=== PATIENT | male | born 1975 | race Caucasian/White ===

== ENCOUNTER 2016-11-01 16:37 | Emergency (ER) | payer BC, OTHER ==
--- NOTE | 2016-11-01 16:44 | EDM.PDOC ---
ED HPI GI/ABDOMINAL - General Chief Complaint: Abdominal Pain Stated Complaint: ABDOMINAL PAIN Time Seen by Provider: 11/01/16 16:44 Source of Information: Reports: Patient History Limitations: Reports: No limitations - History of Present Illness INITIAL COMMENTS - FREE TEXT/NARRATIVE: 41-year-old male attends the ED with pain primarily in his right lower lateral ribs. He states he coughed really hard last night and seemed to make things much worse like something tore in size. Every movement or deep breath today causes pain in the right ribs and right back. Pain is felt primarily up underneath the costal margin on the right side. It does not radiate through to the other side. Has some pain occasionally in the lower right abdominal wall as well. All movements are usually 3 times a day and have been normal. no fever or chills although recently he was treated with a course of Amoxil for strep throat. He did have a cough with this as well. Not bringing up much sputum at this time . Not aware of any fever chills or night sweats. He reports she's been having right lateral chest wall pain for the better part of 2 weeks just worsened last night after coughing so hard. He can eat without any problems. Symptom Onset Date: 10/31/16 (Has been having right lateral anterior rib pain for the better part of 2 weeks. Much worse pain under the costal margin and into his back since he coughed hard last night.) Timing/Duration: Reports: Day(s): Location: other (Right upper quadrant right anterior lateral chest.) Quality: Reports: ache (Pain is much worse with movement or coughing or deep breathing.) Severity: moderate Worsens with: Reports: lying down, sitting up, other (Movements makes things much worse. Deep breathing also makes the pain worse.) Context: Denies: sick contact, bad/questionable food, out of country travel, recent surgery, recent trauma, lifting, activity/exercise Associated Symptoms: Reports: chest pain, back pain (See history present illness ). 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: Other (see below) (None today.) - Related Data Allergies/ADRs: Allergies Allergy/AdvReac Type Severity Reaction Status Date / Time No Known Allergies Allergy Verified 11/01/16 16:42 Home Meds: Home Meds oxyCODONE HCl/Acetaminophen [Percocet 5-325 mg Tablet] 1 - 2 each PO Q4H PRN # 12 tablet 11/01/16 [Rx] Past Medical History - Past Health History Medical/Surgical History: Denies Medical/Surgical History Social & Family History - Tobacco Use Smoking Status *Q: Never Smoker - Recreational Drug Use Recreational Drug Use: No - Living Situation & Occupation Occupation: employed ED [employer] GENER[employer] - Review of Systems Review Of Systems: See Below Constitutional: Denies: fever, chills, malaise, weakness, fatigue HEENT: Reports: No symptoms Respiratory: Reports: Cough, Other (Right anterior lateral chest with deep breathing. Especially along the costal margin.). Denies: Shortness of Breath, Sputum, Hemoptysis (Nonproductive) Cardiovascular: Reports: Chest pain. Denies: Blood pressure problem (See history present illness), Claudication, Dyspnea on exertion, Edema, Lightheadedness, Orthopnea, Palpitations, PND, Syncope, Other Endocrine: Reports: no symptoms GI/Abdominal: Reports: Abdominal pain (Right upper quadrant underneath the right costal margin and radiates around the costal margin into his back. I quite to the infrascapular area.). Denies: Constipation, Diarrhea, Decreased appetite, Difficulty swallowing, Distension, Flatus, Hematemesis, Hematochezia, Melena, Mucous in stool, Nausea, Stool incontinence, Vomiting : Reports: no symptoms Musculoskeletal: Reports: back pain (Right back flank pain radiate from the anterior right chest.) Skin: Reports: no symptoms Neurological: Reports: No Symptoms Psychiatric: Reports: No symptoms Hematologic/Lymphatic: Reports: no symptoms Immunologic: Reports: no symptoms ED EXAM, GI/ABD - Physical Exam Exam: See Below Exam Limited By: No limitations General Appearance: alert, WD/WN, moderate distress (He seems to be in a moderate amount of pain particularly with movement or deep breathing.) Eyes: bilateral: normal appearance (No jaundice.) Neck: normal inspection, supple, non-tender, full range of motion, carotid bruit Respiratory/Chest: no respiratory distress, lungs clear, normal breath sounds, no accessory muscle use, chest non-tender Cardiovascular: normal peripheral pulses, regular rate, rhythm, no edema, no murmur GI/Abdominal: normal bowel sounds, soft, no organomegaly, no abnormal bruit, no mass, tenderness (Tenderness to palpation along the right), Becerra's sign ( upper oblique muscles and under the costal margin. He does have a positive Becerra sign. However I'm not convinced it's gallbladder it seems to be more muscular.) (Male) Exam: No hernia Back Exam: normal inspection, full range of motion, other (No muscle spasm or rib and subluxation identified.). No: CVA tenderness (L), CVA tenderness (R) Extremities: normal inspection, normal range of motion, non-tender, no pedal edema, normal capillary refill Neurological: alert, oriented, CN II-XII intact, normal cognition, normal gait Psychiatric: normal affect, normal mood Skin Exam: Warm, Dry, Intact, Normal color, No rash, Other (No rashes to suggest shingles.) Course - Vital Signs Last Recorded V/S: Last Vital Signs Temp 36.6 C 11/01/16 16:42 Pulse 80 11/01/16 16:42 Resp 16 11/01/16 16:42 BP 133/93 H 11/01/16 16:42 Pulse Ox 97 11/01/16 16:42 - Orders/Labs/Meds Orders: Active Orders 24 hr Category Date Time Status Abdomen Pelvis w Cont [CT] Stat Exams 11/01/16 17:28 Ordered Ribs 2V w Chest Rt [CR] Stat Exams 11/01/16 17:00 Taken HEPATITIS C ANTIBODY [CHEM] Stat Lab 11/01/16 17:22 Received URINALYSIS W/MICROSCOPIC [UA W/MICROSCOPIC] [URIN] Stat Lab 11/01/16 17:28 Uncollected Dextrose 5%-0.9% NaCl [Dextrose 5%-Normal Saline] 1,000 Med 11/01/16 17:30 Active ml IV ASDIRECTED Ketorolac [Toradol] Med 11/01/16 17:30 Active 30 mg IVPUSH ONETIME Sodium Chloride 0.9% [Saline Flush] Med 11/01/16 18:56 Active 10 ml FLUSH ONETIME PRN Medication Orders Dextrose/Sodium Chloride (Dextrose 5%-Normal Saline) 1,000 mls @ 150 mls/hr IV ASDIRECTED SAGRARIO Last Admin: 11/01/16 18:03 Dose: 150 mls/hr Ketorolac Tromethamine (Toradol) 30 mg IVPUSH ONETIME SAGRARIO Last Admin: 11/01/16 18:06 Dose: 30 mg Sodium Chloride (Saline Flush) 10 ml FLUSH ONETIME PRN PRN Reason: IV FLUSH Labs: Laboratory Tests 11/01/16 11/01/16 11/01/16 Range/Units 17:44 17:44 17:44 WBC 6.80 (4.23-9.07) K/mm3 RBC 4.69 (4.63-6.08) M/mm3 Hgb 15.5 (13.7-17.5) gm/L Hct 44.9 (40.1-51.0) % MCV 95.7 H (79.0-92.2) fl MCH 33.0 H (25.7-32.2) pg MCHC 34.5 (32.2-35.5) g/dl RDW Std Deviation 42.8 (35.1-43.9) fL Plt Count 340 H (163-337) K/mm3 MPV 10.2 (9.4-12.3) fl Neutrophils % (Manual) 43 (40-60) % Band Neutrophils % 1 (0-10) % Lymphocytes % (Manual) 47 H (20-40) % Atypical Lymphs % 0 % Monocytes % (Manual) 7 (2-10) % Eosinophils % (Manual) 1 (0.8-7.0) % Basophils % (Manual) 1 (0.2-1.2) Platelet Estimate Adequate Plt Morphology Comment Normal RBC Morph Comment Normal ESR 5 (0-15) mm/hr D-Dimer, Quantitative (0.19-0.59) mg/L Sodium 142 (136-145) mEq/L Potassium 3.9 (3.5-5.1) mEq/L Chloride 107 (98-107) mEq/L Carbon Dioxide 25 (21-32) mEq/L Anion Gap 13.9 (5-15) BUN 19 H (7-18) mg/dL Creatinine 1.1 (0.7-1.3) mg/dL Est Cr Clr Drug Dosing TNP Estimated GFR (MDRD) > 60 (>60) mL/min BUN/Creatinine Ratio 17.3 (14-18) Glucose 100 (74-106) mg/dL Calcium 9.3 (8.5-10.1) mg/dL Total Bilirubin 0.5 (0.2-1.0) mg/dL AST 24 (15-37) U/L ALT 74 H (16-63) U/L Alkaline Phosphatase 67 (46-116) U/L C-Reactive Protein < 0.2 (<1.0) mg/dL Total Protein 6.9 (6.4-8.2) g/dl Albumin 4.1 (3.4-5.0) g/dl Globulin 2.8 gm/dL Albumin/Globulin Ratio 1.5 (1-2) Lipase 196 (73-393) U/L 11/01/16 Range/Units 17:44 WBC (4.23-9.07) K/mm3 RBC (4.63-6.08) M/mm3 Hgb (13.7-17.5) gm/L Hct (40.1-51.0) % MCV (79.0-92.2) fl MCH (25.7-32.2) pg MCHC (32.2-35.5) g/dl RDW Std Deviation (35.1-43.9) fL Plt Count (163-337) K/mm3 MPV (9.4-12.3) fl Neutrophils % (Manual) (40-60) % Band Neutrophils % (0-10) % Lymphocytes % (Manual) (20-40) % Atypical Lymphs % % Monocytes % (Manual) (2-10) % Eosinophils % (Manual) (0.8-7.0) % Basophils % (Manual) (0.2-1.2) Platelet Estimate Plt Morphology Comment RBC Morph Comment ESR (0-15) mm/hr D-Dimer, Quantitative 0.32 (0.19-0.59) mg/L Sodium (136-145) mEq/L Potassium (3.5-5.1) mEq/L Chloride (98-107) mEq/L Carbon Dioxide (21-32) mEq/L Anion Gap (5-15) BUN (7-18) mg/dL Creatinine (0.7-1.3) mg/dL Est Cr Clr Drug Dosing Estimated GFR (MDRD) (>60) mL/min BUN/Creatinine Ratio (14-18) Glucose (74-106) mg/dL Calcium (8.5-10.1) mg/dL Total Bilirubin (0.2-1.0) mg/dL AST (15-37) U/L ALT (16-63) U/L Alkaline Phosphatase (46-116) U/L C-Reactive Protein (<1.0) mg/dL Total Protein (6.4-8.2) g/dl Albumin (3.4-5.0) g/dl Globulin gm/dL Albumin/Globulin Ratio (1-2) Lipase (73-393) U/L Meds: Medications Generic Name Dose Route Start Last Admin Trade Name Freq PRN Reason Stop Dose Admin Dextrose/Sodium Chloride 1,000 mls @ 150 mls/hr 11/01/16 17:30 11/01/16 18:03 Dextrose 5%-Normal Saline IV 150 mls/hr ASDIRECTED SAGRARIO Administration Ketorolac Tromethamine 30 mg 11/01/16 17:30 11/01/16 18:06 Toradol IVPUSH 30 mg ONETIME SAGRARIO Administration Sodium Chloride 10 ml 11/01/16 18:56 Saline Flush FLUSH ONETIME PRN IV FLUSH Discontinued Medications Generic Name Dose Route Start Last Admin Trade Name Freq PRN Reason Stop Dose Admin Diatrizoate Meglum/Diatrizoate Sod 90 ml 11/01/16 18:56 Gastrografin 37% PO 11/01/16 18:57 ONETIME ONE Hydromorphone HCl 1 mg 11/01/16 17:27 11/01/16 17:58 Dilaudid IVPUSH 11/01/16 17:28 1 mg ONETIME ONE Administration Iopamidol 125 ml 11/01/16 18:56 Isovue-300 (61%) IVPUSH 11/01/16 18:57 ONETIME ONE Metoclopramide HCl 10 mg 11/01/16 17:27 11/01/16 17:55 Reglan IVPUSH 11/01/16 17:28 10 mg ONETIME ONE Administration - Radiology Interpretation Free Text/Narrative:: 41-year-old male attends the ED with diffuse pain in his right anterolateral lower chest worse with inspiration and movement such as standing sitting or getting out of bed onto the vehicle or lying down. No known injuries. He states she's had pain in this area pretty well constantly for the last 2 weeks but if he lies on the right side at bedtime. Denies any changes in bowel habits or genitourinary function. He did have an upper Specter tract infection treated with amoxicillin for suspect strep infection about 2 weeks ago. No fever or chills now. He coughed hard last night and he states this seemed to tear something or strained something inside as the pain increased traumatically. He can barely get out of bed this morning. Contamination shows tenderness along the lower right 3 ribs as well as the upper abdominal wall i.e. the obliques. Nothing identified in the back. Plan initially will have a two-view chest x-ray with right rib detail done. Pending these results we'll consider further investigations by way of lab and/or CT to make sure that his gallbladder and kidney are okay here. - Re-Assessments/Exams Free Text/Narrative Re-Assessment/Exam: 11/01/16 17:31 2 view chest x-ray with right rib detail does not reveal any abnormalities in the lung or the ribs visualized. There is increased stool in the colon up underneath the right hemidiaphragm. He requires further investigation and therefore lab work will be collected including a d-dimer and lipase. A CT of his abdomen pelvis be ordered with contrast. The meantime he will have IV started normal saline at 150 mils per hour. Given Dilaudid 1 mg IV with Reglan 10 mg IV and Toradol 30 mg IV for pain relief. 11/01/16 19:17 labs are now back. They reveal a normal white count at 6.80 with a normal differential of 43% neutrophils and 1% band cells. Hemoglobin is normal at 15.5 with hematocrit of 44.9. Will is normal 340,000. Sedimentation rate is 5. D-dimer is normal at 0.32. Chemistry shows a sodium of 142 potassium of 3.9. Total 7 bicarbonate 25. BUN is 19. ALT is elevated at 74. Serum lipase normal 196. C-reactive protein is less than 0.2. Because of his elevated ALT only and 74 a hepatitis C antibody test was ordered. Patient is soon to go to the CT suite. 11/01/16 19:33 CT of the abdomen and pelvis has been completed. Visualized portions of the lungs and ribs on the right side reveal no abnormalities. CT of the abdomen reveals a normal-appearing liver and visualized portions of the gallbladder did not show any signs of inflammation or stones. Pancreas is relatively small and otherwise within normal limits. Adrenal glands normal spleen normal stomach close most of the contrast media with very little contrast entering the upper small bowel. The kidneys are well visualized due to intravenous contrast and drainage systems are normal. He has bilateral small fat -containing inguinal hernias. He is a large amount of stool throughout the right hemicolon particularly the hepatic flexure wedged up underneath the liver overlying the kidney and stool through out the transverse colon which I think is consuming a good deal to his abdominal pain. However I still feel he has a significant musculoskeletal problem with the ribs and oblique muscles. Reports pain is coming back at this time and with some nausea and he'll be given Zofran 4 mg IV with Dilaudid 0.5 mg IV for further pain relief. 11/01/16 19:50 spoke with him at length about the findings. Plan will be to place him on Citroma 7 ounces by mouth with 5 ounces of juice of choice tonight to provide right hemicolon bowel cleanse. He is to followup if his pain persists and is not markedly improved in the next 5-7 days. Recommended Aleve 2 tablets every 8 hours as necessary for pain and inflammation relief and I did supply him with Percocet 5/325 mg tablets x12 that he can take for pain not relieved by Aleve alone. He is to monitor his skin in this area for the next week to make sure that he does not develop shingles. Departure - Departure Time of Disposition: 20:20 Disposition: Home, Self-Care 01 Condition: fair Clinical Impression: Acute chest wall pain, Abdominal wall pain in right upper quadrant Prescriptions: oxyCODONE HCl/Acetaminophen [Percocet 5-325 mg Tablet] 1 - 2 each PO Q4H PRN # 12 tablet PRN Reason: pain relief. Forms: ED Department Discharge Additional Instructions: Evaluation in the emergency room today in regards to reported right lower anterior lateral chest wall pain involving ribs 1011 and 12 for the better part of 2 weeks. Pain worsened substantially after a very hard cough last evening which kept her awake a good portion of the night and has been very troublesome throat today. Any movement or he did deep breathing aggravates the pain suggesting muscle splitting source of injury. Tenderness appreciated however along the right upper abdominal wall particularly under the ribs in the distribution of the gallbladder and liver. Tenderness appreciated on palpation of ribs 1011 and 12 particularly 11th and 12th rib anterior laterally where the muscles come off of the ribs. X-rays of the chest with views of the ribs did not reveal any abnormalities within the chest lung or ribs themselves. Lab work done was also found to be completely normal with a normal white blood cell count and no signs of an infective process. No signs of blood clot in the lungs. Due to his severity of the pain and the length of time it has lasted further investigations were felt to be necessary. CT scan of the abdomen and pelvis were therefore carried out. The visualized the lower portions of the lung and ribs in question and no antibodies were identified on CT exam. CT of the abdomen reveals a normal liver and gallbladder without stones. Pancreas and spleen are normal. Small bowel was found to be normal both kidneys are normal with normal drainage system. A large amount of stool is present in the right hemicolon particularly up underneath the liver and then across the upper abdomen in the transverse colon. This may be causing a good deal of your pain particularly with deep breathing. The upper portion of the right colon takes a curve in her back over top of the kidney and this may be why you feel pain in the kidney area. It is not necessarily explain why the lower rib cage is sore however. Still think there is a significant muscle skeletal cause of your current pain syndrome. Keep an eye out for any rash development in this area in the next week. Shingles will sometimes cause significant pain in the distribution from back to front for 5 days before rash shows up. If the rash does show up return to medical care. The meantime I'm going to suggest drinking 7 ounces of Citroma or magnesium citrate mixed with 5 ounces of juice of choice taken orally once tonight. This will provide bowel clans and removed the solid stool from the right colon and see if this alleviates a good deal of your upper abdominal pain. In regards to the rib and muscular pain I would suggest an anti- inflammatory such as Aleve 2 tablets every 8 hours until feeling better. I also will prescribed pain pills --Percocet 5/325 mg strength to be taken as needed when not operating were vehicle or machinery for pain not relieved by Aleve alone. Suggest followup with personal physician if not markedly improved in the next 5-7 days. - My Orders Last 24 Hours: My Active Orders 11/01/16 17:00 Ribs 2V w Chest Rt [CR] Stat 11/01/16 17:22 HEPATITIS C ANTIBODY [CHEM] Stat 11/01/16 17:28 Abdomen Pelvis w Cont [CT] Stat URINALYSIS W/MICROSCOPIC [UA W/MICROSCOPIC] [URIN] Stat 11/01/16 17:30 Dextrose 5%-0.9% NaCl [Dextrose 5%-Normal Saline] 1,000 ml IV ASDIRECTED Ketorolac [Toradol] 30 mg IVPUSH ONETIME 11/01/16 18:56 Sodium Chloride 0.9% [Saline Flush] 10 ml FLUSH ONETIME PRN - Assessment/Plan Last 24 Hours: My Active Orders 11/01/16 17:00 Ribs 2V w Chest Rt [CR] Stat 11/01/16 17:22 HEPATITIS C ANTIBODY [CHEM] Stat 11/01/16 17:28 Abdomen Pelvis w Cont [CT] Stat URINALYSIS W/MICROSCOPIC [UA W/MICROSCOPIC] [URIN] Stat 11/01/16 17:30 Dextrose 5%-0.9% NaCl [Dextrose 5%-Normal Saline] 1,000 ml IV ASDIRECTED Ketorolac [Toradol] 30 mg IVPUSH ONETIME 11/01/16 18:56 Sodium Chloride 0.9% [Saline Flush] 10 ml FLUSH ONETIME PRN
[2016-11-01 16:46] VITALS: BP 133/93
[2016-11-01] MEDS ORDERED: Metoclopramide 10 MG/2 ML SDV IVPUSH ONE (17:27)
[2016-11-01] MEDS ORDERED: HYDROmorphone 1 MG/ML Syringe IVPUSH ONE (17:27)
[2016-11-01] MEDS ORDERED: Ketorolac 30 MG/ML SDV IVPUSH SCH (17:30)
[2016-11-01] MEDS ORDERED: Dextrose 5%-0.9% NaCl 1,000 ML IV SCH (17:30)
[2016-11-01] MEDS ORDERED: Sodium Chloride 0.9% 10 ML Syringe FLUSH PRN (18:56)
[2016-11-01] MEDS ORDERED: Diatrizoate Meglumine/Diatrizoate Sodium 37% 120 ML Bottle PO ONE (18:56)
[2016-11-01] MEDS ORDERED: Iopamidol 612 MG/ML 150 ML Bottle IVPUSH ONE (18:56)
[2016-11-01] MEDS ORDERED: Ondansetron 4 MG/2 ML SDV IVPUSH ONE (19:49)
[2016-11-01] MEDS ORDERED: HYDROmorphone 0.5 MG/0.5 ML Syringe IVPUSH ONE (19:50)
[2016-11-01] MEDS ORDERED: Magnesium Citrate Solution 296 ML Bottle PO ONE (19:59)
--- NOTE | 2016-11-01 20:00 | CT ---
CT abdomen and pelvis Technique: Multiple axial sections were obtained from above the dome of the diaphragm inferiorly through the pubic symphysis. Intravenous contrast was utilized. Oral contrast has been given with majority of contrast remaining within the stomach. Delayed images were also obtained through the abdomen and pelvis. Comparison: No previous abdominal imaging Findings: Visualized lung bases shows nothing acute. Liver shows no focal parenchymal abnormality. Spleen appears within normal limits. Adrenal glands show no nodule. Pancreas is within normal limits. Kidneys show symmetric contrast enhancement. Delayed images shows contrast excretion into the ureters with contrast also noted within the bladder. Appendix is seen which appears normal. Aorta shows no aneurysmal dilatation. No retroperitoneal adenopathy or mesenteric abnormalities are seen. No pelvic mass or adenopathy is seen. No bowel dilatation is identified. No inflammatory change is seen. Gallbladder shows no calcified gallstones. Bone window settings were reviewed which appear within normal limits for the patient's age with very minimal degenerative change being seen. Impression: 1. Incidental findings. Nothing acute is identified on CT study of the abdomen and pelvis. Diagnostic code #2
--- NOTE | 2016-11-02 07:30 | CR ---
Chest and right ribs: Frontal view of the chest was obtained as well as four views of the right ribs. Comparison: No previous chest x-ray. Heart size and mediastinum are within normal limits. Lungs are clear. No discrete right sided rib abnormality is appreciated. Impression: 1. No discrete right sided rib abnormality. Nothing acute is appreciated on accompanying chest x-ray. Diagnostic code #1
== END 2016-11-01 20:15 | disposition home or self-care (01) ==
LOC: JD.ED 16:37
DX: R07.89 Other chest pain (principal); R10.11 Right upper quadrant pain; R05 Cough
CPT/HCPCS: 36415; 71101; 74177; 80053; 81001; 83690; 85025; 85379; 85652; 86140; 86803; 87804; 96361; 96374; 96375; 96376; 99285; A9270; J1170; J1885; J2405; J2765; J7042; J7050; Q9963; Q9967